=== PATIENT | male | born 1935 | race Hispanic/Latino ===

== ENCOUNTER 2020-07-27 22:31 | Emergency (ER) | payer OTHER ==
[2020-07-27] MEDS ORDERED: Sodium Chloride 0.9% 500 ML ONE ×2 (22:48→23:41)
[2020-07-27 22:55] LABS: #Lymphocytes 2.4 thou/uL (1.20-3.40); #Monocytes 0.9 thou/uL (0.11-0.59); #Neutrophils 9.8 thou/uL (1.40-6.50); %Basophils 0.4 % (0.0-1.0); %Eosinophils 0.2 % (0.0-10.0); %Monocytes 7.1 % (0.0-10.0); %Neutrophils 74.3 % (42.0-75.0); Hemoglobin 6.5 g/dL (14.0-18.0); Mean Corpuscular HGB CONC 31.7 g/dL (32.0-36.0); Mean Corpuscular Hemoglobin 26.7 pg (27.0-31.0); Mean Corpuscular Volume 84.2 fL (78.0-98.0); Mean Platelet Volume 4.8 fL (7.4-10.4); Platelet Count 556 thou/uL (130-400); RBC Distribution Width 14.9 % (11.5-14.5); Red Blood Cell (RBC) Count 2.44 mill/uL (4.70-6.10); White Blood Cell (WBC) Count 13.2 thou/uL (4.8-10.8)
[2020-07-27 23:21] LABS: ALT (SGPT) 10 U/L (8-55); AST (SGOT) 17 U/L (5-34); Albumin 2.1 g/dL (3.4-4.8); Alkaline Phosphatase 90 U/L (40-110); Anion Gap 14 mmol/L (10-20); BUN (Urea Nitrogen) 43 mg/dL (8.4-25.7); Bilirubin, Total 0.3 mg/dL (0.2-1.2); Calc. Creatinine Clearance 0 mL/min (70-130); Carbon Dioxide 19 mmol/L (23-31); Chloride 107 mmol/L (98-107); Estimated GFR-MDRD 32; Globulin 3.4 g/dL (2.4-3.5); Glucose 144 mg/dL (83-110); Potassium 3.9 mmol/L (3.5-5.1); Protein, Total 5.5 g/dL (5.8-8.1); Sodium 136 mmol/L (136-145)
[2020-07-27 23:26] LABS: Prothrombin Time Greater than 150.0 sec (12.0-14.7)
[2020-07-27 23:28] LABS: PTT Greater than 250.0 sec (22.9-36.1)
--- NOTE | 2020-07-28 07:40 | RAD ---
Exam: Chest one view HISTORY:Tachycardia Comparison: 04/23/2019 FINDINGS: Cardiac silhouette: Normal Aorta: Atherosclerotic and elongated Pulmonary vessels: Normal Costophrenic angles: Clear LUNGS: No masses or consolidation. Pneumothorax: None Osseous abnormalities: None IMPRESSION: 1. No acute cardiopulmonary process 2. Atherosclerosis and elongation of the aorta.
== END 2020-07-28 01:32 | disposition short-term general hospital (02) ==
LOC: NAV ERS 22:31
DX: I48.91 Unspecified atrial fibrillation (principal); R79.1 Abnormal coagulation profile; N28.9 Disorder of kidney and ureter, unspecified; D64.9 Anemia, unspecified; I50.9 Heart failure, unspecified; I11.0 Hypertensive heart disease with heart failure; Z79.899 Other long term (current) drug therapy
CPT/HCPCS: 36430; 71045; 80053; 83880; 84484; 85025; 85610; 85730; 86850; 86900; 86901; 93005; J7030; P9016

== ENCOUNTER 2022-01-24 04:45 | Emergency (ER) | payer OTHER | END 2022-01-24 07:52 | LOC: NAV ERS 04:45 | DX: S01.81XA Laceration without foreign body of other part of head, initial encounter (principal); I48.91 Unspecified atrial fibrillation; I25.10 Atherosclerotic heart disease of native coronary artery without angina pectoris; I50.9 Heart failure, unspecified; D64.9 Anemia, unspecified; K21.9 Gastro-esophageal reflux disease without esophagitis; Z79.899 Other long term (current) drug therapy; W06.XXXA Fall from bed, initial encounter; Y92.149 Unspecified place in prison as the place of occurrence of the external cause | CPT/HCPCS: 12013; 70450 ==